=== PATIENT | female | born 1980 | race Caucasian/White ===

== ENCOUNTER 2016-12-01 20:19 | Emergency (ER) | payer OTHER ==
[~2016-12-01] VITALS: Ht 152.4 cm; Wt 48.0 kg
[2016-12-01 20:35] VITALS: BP 106/66
[2016-12-01 22:08] LABS: ASPARTATE AMINO TRANSFERASE 15 U/L (15-37); BLOOD UREA NITROGEN 7 mg/dL (7-18)
== END 2016-12-01 23:00 | disposition home or self-care (01) ==
LOC: ED 22:45
DX: O20.0 Threatened abortion (principal); Z3A.15 15 weeks gestation of pregnancy
CPT/HCPCS: 36415; 76805; 80053; 81003; 84702; 85025; 86901; 99285

== ENCOUNTER 2017-05-17 02:51 | Inpatient (IN) | payer OTHER ==
[~2017-05-17] VITALS: Ht 152.4 cm; Wt 57.6 kg
[2017-05-17] MEDS ORDERED: D5%-LACTATED RINGERS 1,000 ML IV SCH (03:06)
[2017-05-17] MEDS ORDERED: OXYTOCIN 30U/ 0.9% NaCL 500ML 500 ML IV ONE (03:06)
[2017-05-17] MEDS ORDERED: NEWBORN KIT ONE (03:18)
[2017-05-17] MEDS ORDERED: OXYTOCIN 30U/ 0.9% NaCL 500ML 500 ML ONE (03:18)
[2017-05-17] MEDS ORDERED: CALCIUM CARBONATE 500 MG TAB.CHEW PO PRN (03:30)
[2017-05-17] MEDS ORDERED: FENTANYL PF 100 MCG/2ML IV PRN (03:30)
[2017-05-17] MEDS ORDERED: TERBUTALINE 1 MG/ML, 1ML SQ PRN (03:30)
[2017-05-17] MEDS ORDERED: ONDANSETRON 2MG/ML, 2ML IVPush PRN ×2 (03:30→15:00)
[2017-05-17] MEDS ORDERED: FENTANYL PF 100 MCG/2ML IVPush PRN (03:30)
[2017-05-17] MEDS ORDERED: TERBUTALINE 1 MG/ML, 1ML IVPush PRN ×2 (03:30)
[2017-05-17 03:44] LABS: BASOPHILS # (AUTO) 0.03 x10^3/uL (0-0.1); BASOPHILS % (AUTO) 0 % (0-1); EOSINOPHILS # (AUTO) 0.04 x10^3/uL (0-0.4); EOSINOPHILS % (AUTO) 0 % (1-7); LYMPHOCYTES # (AUTO) 1.86 x10^3/uL (1-3.4); LYMPHOCYTES % (AUTO) 15 % (22-44); MD NO; MEAN CORPUSCULAR HEMOGLOBIN 31.6 pg (27.0-34.8); MEAN CORPUSCULAR HGB CONC 33.5 g/dL (32.4-35.8); MEAN CORPUSCULAR VOLUME 94.1 fL (80-100); MEAN PLATELET VOLUME 9.4 fL (7.4-10.4); MONOCYTES # (AUTO) 0.46 x10^3/uL (0.2-0.8); MONOCYTES % (AUTO) 4 % (2-9); NEUTROPHILS # (AUTO) 10.16 x10^3/uL (1.8-6.8); NEUTROPHILS % (AUTO) 81 % (42-75); PLATELET COUNT 181 x10^3/uL (130-400); RED BLOOD COUNT 4.04 x10^6/uL (3.82-5.3); RED CELL DISTRIBUTION WIDTH 13.9 % (9.6-15.2)
[2017-05-17 03:54] VITALS: BP 127/77
[2017-05-17] MEDS: LACTATED RINGERS 1,000 ML IV SCH ×5 (04:27→23:00)
[2017-05-17 06:11] VITALS: BP 120/77
[2017-05-17] MEDS ORDERED: OXYTOCIN 30U/ 0.9% NaCL 500ML 500 ML IV PRN (07:02)
[2017-05-17] MEDS ORDERED: FENTANYL/BUPIV./NS/PF 250 ML EPIDCONT ONE (08:04)
[2017-05-17] MEDS ORDERED: BUPIVACAINE/PF 0.25% ONE (08:04)
[2017-05-17] MEDS ORDERED: PREN1TAB60 PO (09:41)
[2017-05-17 09:56] LABS: CULTURE INDICATED? YES; MICROSCOPIC INDICATED
[2017-05-17] MEDS ORDERED: FENTANYL PF 100 MCG/2ML ONE (14:40)
[2017-05-17] MEDS ORDERED: NALOXONE 0.4 MG/ML, 1ML IVPush PRN (15:00)
[2017-05-17] MEDS ORDERED: LACTATED RINGERS 1,000 ML IVBOLUS PRN (15:00)
[2017-05-17] MEDS ORDERED: EPHEDRINE 50 MG/ML, 1ML IVPush PRN (15:00)
[2017-05-17] MEDS ORDERED: FENTANYL/BUPIV./NS/PF 250 ML EPIDCONT SCH (15:00)
[2017-05-17] MEDS ORDERED: CLINDAMYCIN PMX 900MG/50ML 50 ML ONE (15:58)
[2017-05-17] MEDS ORDERED: CLINDAMYCIN PMX 900MG/50ML 50 ML IV SCH ×2 (16:00→17:30)
[2017-05-17] MEDS ORDERED: MISOPROSTOL 200 MCG TABLET ONE (18:53)
[2017-05-17] MEDS ORDERED: LIDOCAINE 1%, 10ML ONE (19:52)
[2017-05-17] MEDS ORDERED: OXYTOCIN 30U/ 0.9% NaCL 500ML 500 ML IV SCH (20:33)
[2017-05-17] MEDS ORDERED: MISOPROSTOL 200 MCG TABLET PR PRN (21:00)
[2017-05-17] MEDS ORDERED: METHYLERGONOVINE 0.2 MG/ML IM PRN (21:00)
[2017-05-17] MEDS ORDERED: ACETAMINOPHEN 325 MG TABLET PO PRN (21:00)
[2017-05-17] MEDS ORDERED: ONDANSETRON 2MG/ML, 2ML IV PRN (21:00)
[2017-05-17] MEDS ORDERED: OXYcodone/APAP 5/325MG TABLET PO PRN ×2 (21:00)
[2017-05-17] MEDS ORDERED: OXYTOCIN 10 UNITS/ML, 1ML IM PRN (21:00)
[2017-05-17] MEDS ORDERED: CARBOPROST TROMETHAMINE 250 MCG/ML, 1ML IM PRN (21:00)
[2017-05-17 22:30] VITALS: BP 112/70
[2017-05-17 23:27] VITALS: BP 103/63
[2017-05-18] MEDS ORDERED: CLINDAMYCIN PMX 900MG/50ML 50 ML IV SCH
[2017-05-18] MEDS: IBUPROFEN 600 MG TABLET PO PRN ×3 (03:22→19:51)
[2017-05-18 04:00] VITALS: BP 123/78
[2017-05-18 04:57] LABS: MEAN CORPUSCULAR HGB CONC 33.9 g/dL (32.4-35.8); MEAN CORPUSCULAR VOLUME 94.1 fL (80-100); MEAN PLATELET VOLUME 9.7 fL (7.4-10.4); PLATELET COUNT 160 x10^3/uL (130-400); RED BLOOD COUNT 3.52 x10^6/uL (3.82-5.3); RED CELL DISTRIBUTION WIDTH 14.6 % (9.6-15.2)
[2017-05-18 05:51] LABS: BASOPHILS # (AUTO) 0.02 x10^3/uL (0-0.1); BASOPHILS % (AUTO) 0 % (0-1); EOSINOPHILS # (AUTO) 0.03 x10^3/uL (0-0.4); EOSINOPHILS % (AUTO) 0 % (1-7); LYMPHOCYTES # (AUTO) 1.58 x10^3/uL (1-3.4); LYMPHOCYTES % (AUTO) 8 % (22-44); MD MORPH REVIEW ONLY; MONOCYTES # (AUTO) 0.77 x10^3/uL (0.2-0.8); MONOCYTES % (AUTO) 4 % (2-9); NEUTROPHILS # (AUTO) 16.42 x10^3/uL (1.8-6.8); NEUTROPHILS % (AUTO) 87 % (42-75)
[2017-05-18 05:52] LABS: TOXIC GRAN 1+
[2017-05-18 05:53] LABS: <PLATELET ESTIMATE> ADEQUATE; <PLT MORPHOLOGY> NORMAL PLT MORPH; ANISOCYTOSIS 1+
[2017-05-18 07:45] VITALS: BP 108/65
[2017-05-18] MEDS: DOCUSATE 100 MG CAPSULE PO PRN (09:17)
[2017-05-18] MEDS: PRENATAL VIT/IRON/FA 1 EACH TABLET PO SCH (09:17)
[2017-05-18 12:00] VITALS: BP 104/64
[2017-05-18 16:00] VITALS: BP 104/57
[2017-05-18 19:43] VITALS: BP 113/74
[2017-05-19] MEDS: IBUPROFEN 600 MG TABLET PO PRN (04:22)
[2017-05-19 07:36] VITALS: BP 105/69
[2017-05-19] MEDS: DOCUSATE 100 MG CAPSULE PO PRN (10:33)
[2017-05-19] MEDS: PRENATAL VIT/IRON/FA 1 EACH TABLET PO SCH (10:33)
[2017-05-19] MEDS ORDERED: IBUP-1222 PO (14:01)
== END 2017-05-19 18:40 | disposition home or self-care (01) | DRG 775 ==
LOC: LDOP 02:51 → LDIP 03:11 → 2NW 22:30
PROVIDERS: ADMIT Obstetrics & Gynecology; ATTEND Obstetrics & Gynecology
PROC: 4A1HXCZ Monitoring of Products of Conception, Cardiac Rate, External Approach (ICD-10-PCS; principal; 2017-05-17)
PROC: 0KQM0ZZ Repair Perineum Muscle, Open Approach (ICD-10-PCS; 2017-05-17)
PROC: 0W8NXZZ Division of Female Perineum, External Approach (ICD-10-PCS; 2017-05-17)
PROC: 0UQMXZZ Repair Vulva, External Approach (ICD-10-PCS; 2017-05-17)
PROC: 3E0R3BZ Introduction of Anesthetic Agent into Spinal Canal, Percutaneous Approach (ICD-10-PCS; 2017-05-17)
PROC: 00HU33Z Insertion of Infusion Device into Spinal Canal, Percutaneous Approach (ICD-10-PCS; 2017-05-17)
DX: O42.92 Full-term premature rupture of membranes, unspecified as to length of time between rupture and onset of labor (principal); Z37.0 Single live birth; O70.1 Second degree perineal laceration during delivery; Z3A.38 38 weeks gestation of pregnancy; Z82.49 Family history of ischemic heart disease and other diseases of the circulatory system; Z82.62 Family history of osteoporosis; Z83.3 Family history of diabetes mellitus; Z88.1 Allergy status to other antibiotic agents; Z91.013 Allergy to seafood; O71.82 Other specified trauma to perineum and vulva
CPT/HCPCS: 36415; 81001; 82803; 85025; 86850; 86900; 87086; 88305; J2590; J3010; J7120; J7121

== ENCOUNTER 2020-02-11 05:27 | Inpatient (IN) | payer OTHER ==
[~2020-02-11] VITALS: Ht 152.4 cm; Wt 63.6 kg
[~2020-02-11 05:27] MED LIST: IBUP-1222 PO; PREN1TAB60 PO
[2020-02-11] MEDS ORDERED: NEWBORN KIT ONE ×2 (05:56→08:10)
[2020-02-11] MEDS ORDERED: OXYTOCIN 30U/ 0.9% NaCL 500ML 500 ML ONE (05:56)
[2020-02-11] MEDS ORDERED: METOCLOPRAMIDE 5 MG/ML, 2ML ONE (05:56)
[2020-02-11] MEDS ORDERED: METOCLOPRAMIDE 5 MG/ML, 2ML IV ONE (06:00)
[2020-02-11] MEDS ORDERED: ONDANSETRON 2MG/ML, 2ML IVPush ONE (06:00)
[2020-02-11] MEDS ORDERED: LACTATED RINGERS 1,000 ML IVBOLUS ONE (06:00)
[2020-02-11] MEDS ORDERED: SODIUM CITRATE/CITRIC ACID 30 ML UDC PO ONE (06:00)
[2020-02-11 06:29] VITALS: BP 108/61
[2020-02-11 06:45] LABS: BASOPHILS % (AUTO) 0 % (0-1); EOSINOPHILS % (AUTO) 1 % (1-7); LYMPHOCYTES % (AUTO) 22 % (22-44); MEAN CORPUSCULAR HEMOGLOBIN 29.6 pg (27.0-34.8); MEAN CORPUSCULAR HGB CONC 33.8 g/dL (32.4-35.8); MONOCYTES % (AUTO) 6 % (2-9); NEUTROPHILS % (AUTO) 71 % (42-75); PLATELET COUNT 191 x10^3/uL (130-400); RED BLOOD COUNT 3.74 x10^6/uL (3.82-5.3); RED CELL DISTRIBUTION WIDTH 15.8 % (9.6-15.2)
[2020-02-11 06:47] LABS: MD NO
[2020-02-11] MEDS ORDERED: EPHEDRINE 50 MG/ML, 1ML ONE (07:10)
[2020-02-11] MEDS ORDERED: OXYTOCIN 10 UNITS/ML, 1ML ONE (07:10)
[2020-02-11] MEDS ORDERED: PHENYLEPHRINE 10 MG/ML ONE (07:10)
[2020-02-11] MEDS ORDERED: CEFAZOLIN 1,000 MG ONE (07:10)
[2020-02-11] MEDS ORDERED: KETOROLAC 30 MG/1 ML ONE (07:10)
[2020-02-11] MEDS ORDERED: ONDANSETRON 2MG/ML, 2ML ONE (07:10)
[2020-02-11] MEDS ORDERED: DEXAMETHASONE 4 MG/ML, 1ML ONE (07:10)
[2020-02-11] MEDS ORDERED: FENTANYL PF 100 MCG/2ML ONE (07:10)
[2020-02-11] MEDS ORDERED: PROMETHAZINE 25 MG/ML, 1ML IV PRN (07:30)
[2020-02-11] MEDS ORDERED: hydrALAzine 20 MG/ML, 1ML IV PRN (07:30)
[2020-02-11] MEDS ORDERED: HYDROmorphone 2 MG/ML, 1ML IVPush PRN (07:30)
[2020-02-11] MEDS ORDERED: MIDAZOLAM 1 MG/ML, 2ML IV PRN (07:30)
[2020-02-11] MEDS ORDERED: LABETALOL 5MG/ML, 20ML IV PRN (07:30)
[2020-02-11] MEDS ORDERED: ALBUTEROL SULFATE 2.5 MG/3 ML NPPB PRN (07:30)
[2020-02-11] MEDS ORDERED: FENTANYL PF 100 MCG/2ML IV PRN (07:30)
[2020-02-11] MEDS ORDERED: METOPROLOL 1 MG/ML, 5ML IV PRN (07:30)
[2020-02-11] MEDS ORDERED: ONDANSETRON 2MG/ML, 2ML IVPush PRN (07:30)
[2020-02-11] MEDS ORDERED: EPHEDRINE 50 MG/ML, 1ML IVPush PRN (07:30)
[2020-02-11] MEDS ORDERED: MEPERIDINE/PF 25MG/0.5ML IVPush PRN (07:30)
[2020-02-11] MEDS ORDERED: OXYcodone 5 MG/5 ML ORAL.SOL UDC PO PRN (07:30)
[2020-02-11] MEDS ORDERED: LACTATED RINGERS 1,000 ML IV SCH (07:30)
[2020-02-11] MEDS ORDERED: HYDROcodone/APAP 7.5-325MG/15ML UDC PO PRN (07:30)
[2020-02-11] MEDS ORDERED: TRANEXAMIC ACID 100 MG/ML, 10ML ONE (07:52)
[2020-02-11] MEDS ORDERED: HYDROmorphone 2 MG/ML, 1ML ONE (08:17)
[2020-02-11] MEDS ORDERED: CALCIUM CARBONATE 500 MG TAB.CHEW PO PRN (09:30)
[2020-02-11] MEDS ORDERED: METHYLERGONOVINE 0.2 MG/ML IM PRN (09:30)
[2020-02-11] MEDS: LACTATED RINGERS 1,000 ML IV SCH ×4 (09:30→19:30)
[2020-02-11] MEDS ORDERED: ONDANSETRON 2MG/ML, 2ML IV PRN (09:30)
[2020-02-11] MEDS ORDERED: CARBOPROST TROMETHAMINE 250 MCG/ML, 1ML IM PRN (09:30)
[2020-02-11] MEDS ORDERED: ACETAMINOPHEN 325 MG TABLET PO PRN ×2 (09:30)
[2020-02-11] MEDS ORDERED: MISOPROSTOL 200 MCG TABLET PR PRN (09:30)
[2020-02-11] MEDS ORDERED: morphine SULFATE 10 MG/ML, 1ML IVPush PRN (09:30)
[2020-02-11] MEDS ORDERED: MORPHINE SULFATE 4 MG/ML, 1ML IVPush PRN (09:30)
[2020-02-11] MEDS: OXYTOCIN 30U/ 0.9% NaCL 500ML 500 ML IV SCH ×2 (09:38→19:30)
[2020-02-11 11:00] VITALS: BP 111/69
[2020-02-11] MEDS ORDERED: METHYLERGONOVINE 0.2 MG/ML IM ONE (11:47)
[2020-02-11] MEDS ORDERED: MISOPROSTOL 200 MCG TABLET ONE (11:47)
[2020-02-11] MEDS: OXYcodone/APAP 5/325MG TABLET PO PRN ×3 (12:54→22:03)
[2020-02-11 14:50] VITALS: BP 108/68
[2020-02-11 16:20] LABS: BASOPHILS % (AUTO) 0 % (0-1); EOSINOPHILS % (AUTO) 0 % (1-7); LYMPHOCYTES % (AUTO) 10 % (22-44); MEAN CORPUSCULAR HEMOGLOBIN 29.4 pg (27.0-34.8); MEAN CORPUSCULAR HGB CONC 33.5 g/dL (32.4-35.8); MEAN PLATELET VOLUME 8.7 fL (7.4-10.4); MONOCYTES % (AUTO) 4 % (2-9); NEUTROPHILS % (AUTO) 86 % (42-75); PLATELET COUNT 177 x10^3/uL (130-400); RED BLOOD COUNT 3.12 x10^6/uL (3.82-5.3)
[2020-02-11] MEDS: SIMETHICONE 80 MG CHEW TAB PO PRN (17:01)
[2020-02-11 17:06] LABS: MD SCAN
[2020-02-11 19:55] VITALS: BP 108/69
[2020-02-11] MEDS: IBUPROFEN 600 MG TABLET PO PRN (20:10)
[2020-02-11] MEDS: DOCUSATE 100 MG CAPSULE PO PRN (20:10)
[2020-02-12 00:45] VITALS: BP 100/64
[2020-02-12] MEDS: LACTATED RINGERS 1,000 ML IV SCH ×5 (01:30→17:30)
[2020-02-12] MEDS: OXYcodone/APAP 5/325MG TABLET PO PRN ×5 (02:30→21:11)
[2020-02-12] MEDS: IBUPROFEN 600 MG TABLET PO PRN ×4 (02:30→21:11)
[2020-02-12 04:30] VITALS: BP 94/53
[2020-02-12] MEDS: OXYTOCIN 30U/ 0.9% NaCL 500ML 500 ML IV SCH ×2 (05:30→15:30)
[2020-02-12] MEDS: SIMETHICONE 80 MG CHEW TAB PO PRN ×2 (07:49→14:41)
[2020-02-12] MEDS: DOCUSATE 100 MG CAPSULE PO PRN ×2 (07:50→21:11)
[2020-02-12] MEDS: PRENATAL VIT/IRON/FA 1 EACH TABLET PO SCH (07:50)
[2020-02-12 08:20] VITALS: BP 92/54
[2020-02-12 20:00] VITALS: BP 90/45
[2020-02-13] MEDS: OXYTOCIN 30U/ 0.9% NaCL 500ML 500 ML IV SCH ×2 (01:30→02:57)
[2020-02-13] MEDS: LACTATED RINGERS 1,000 ML IV SCH ×3 (01:30→21:30)
[2020-02-13] MEDS: IBUPROFEN 600 MG TABLET PO PRN ×4 (02:00→23:55)
[2020-02-13] MEDS: OXYcodone/APAP 5/325MG TABLET PO PRN ×5 (02:01→22:47)
[2020-02-13] MEDS: DOCUSATE 100 MG CAPSULE PO PRN ×2 (07:28→19:19)
[2020-02-13] MEDS: SIMETHICONE 80 MG CHEW TAB PO PRN (07:28)
[2020-02-13] MEDS: PRENATAL VIT/IRON/FA 1 EACH TABLET PO SCH (07:28)
[2020-02-13 08:30] VITALS: BP 103/61
[2020-02-13 19:50] VITALS: BP 99/62
[2020-02-14] MEDS: LACTATED RINGERS 1,000 ML IV SCH ×3 (02:03→03:06)
[2020-02-14] MEDS: OXYcodone/APAP 5/325MG TABLET PO PRN ×4 (03:38→16:17)
[2020-02-14] MEDS: IBUPROFEN 600 MG TABLET PO PRN ×3 (06:14→17:51)
[2020-02-14] MEDS: DOCUSATE 100 MG CAPSULE PO PRN (07:44)
[2020-02-14] MEDS: PRENATAL VIT/IRON/FA 1 EACH TABLET PO SCH (07:44)
[2020-02-14] MEDS: SIMETHICONE 80 MG CHEW TAB PO PRN (07:44)
[2020-02-14] MEDS: FERROUS GLUCONATE 324 MG TABLET PO SCH ×3 (07:44→17:15)
[2020-02-14 07:45] VITALS: BP 106/53
[2020-02-14] MEDS ORDERED: IBUP-1222 PO (16:30)
[2020-02-14] MEDS ORDERED: OXYC-302 PO (16:31)
== END 2020-02-14 18:19 | disposition home or self-care (01) | DRG 787 ==
LOC: LDIP 05:27 → 2NW 10:56
PROVIDERS: ADMIT Obstetrics & Gynecology; ATTEND Obstetrics & Gynecology
PROC: 10D00Z1 Extraction of Products of Conception, Low, Open Approach (ICD-10-PCS; principal; 2020-02-11)
DX: O24.420 Gestational diabetes mellitus in childbirth, diet controlled (principal); O44.03 Complete placenta previa NOS or without hemorrhage, third trimester; Z3A.37 37 weeks gestation of pregnancy; Z37.0 Single live birth; O40.3XX0 Polyhydramnios, third trimester, not applicable or unspecified; D64.9 Anemia, unspecified; Z20.828 Contact with and (suspected) exposure to other viral communicable diseases; O90.81 Anemia of the puerperium; Z88.8 Allergy status to other drugs, medicaments and biological substances; J30.81 Allergic rhinitis due to animal (cat) (dog) hair and dander
CPT/HCPCS: 36415; 85025; 86592; 86850; 86900; 86923; 87635; G0378; J0690; J1100; J1170; J1885; J2405; J3010; J2210; J2370; J2590; J2765; J7120